=== PATIENT | female | born 2000 | race Caucasian/White ===

== ENCOUNTER 2023-10-01 11:20 | Emergency (ER) | payer OTHER, BC, SELFPAY ==
[2023-10-01 11:24] VITALS: BP 144/84
[2023-10-01 11:25] VITALS: O2SAT 98
[2023-10-01 11:26] VITALS: BP 144/84; PULSE 84; TEMP 36.8; O2SAT 98; BMI 30.4
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
[2023-10-01] MEDS: ONDANSETRON 4 MG RAPDIS TABLET SL ×2 (11:57→13:54)
[2023-10-01] MEDS: ADACEL DIPH,PERTUSS(ACELL),TET VAC/PF 0.5 ML ADULT SYRINGE IM (11:57)
[2023-10-01] MEDS: 0.9 % SODIUM CHLORIDE 1,000 ML 999 ML IV (11:58)
[2023-10-01 12:10] LABS: Basophils Percent Auto 0.4 % (0.2-2.0); Eosinophils Absolute Auto 0.1 10^3/uL (0.0-0.7); Eosinophils Percent Auto 0.8 % (0.9-7.0); Hematocrit 42.8 % (36.0-48.0); Hemoglobin 14.1 g/dL (12.0-16.0); Immature Granulocytes Abs Auto 0.04 10^3/uL (0.00-0.03); Immature Granulocytes Pct Auto 0.6 % (0.0-0.5); Lymphocytes Absolute Auto 1.4 10^3/uL (1.2-3.8); Mean Corpuscular HGB Conc 32.9 g/dL (29.9-35.2); Mean Corpuscular Volume 88.1 fL (81.0-99.0); Monocytes Absolute Auto 0.6 10^3/uL (0.3-0.8); Monocytes Percent Auto 8.5 % (1.7-12.0); Neutrophils Absolute Auto 4.9 10^3/uL (1.4-6.5); Neutrophils Percent Auto 69.7 % (43.0-75.0); Platelet Count 262 10^3/uL (150-450); Red Blood Count 4.86 10^6/uL (4.20-5.40); White Blood Count 7.1 10^3/uL (4.0-11.0)
[2023-10-01 12:37] LABS: HCG Qualitative NEGATIVE (NEGATIVE)
[2023-10-01 12:45] LABS: Alanine Aminotransferase 18 U/L (14-59); Albumin Globulin Ratio 1.3; Albumin Level 4.3 g/dL (3.4-5.0); Alkaline Phosphatase 68 U/L (46-116); Anion Gap 14.2; Aspartate Amino Transferase 16 U/L (15-37); BUN Creatinine Ratio 11.5; Bilirubin Total 0.5 mg/dL (0.2-1.0); Calcium 9.7 mg/dL (8.5-10.1); Carbon Dioxide 24.8 mmol/L (21.0-32.0); Chloride 104 mmol/L (98-107); Estimated GFR (African America >60 (>=60); Estimated GFR (Non-African Ame >60 (>=60); Globulin 3.3 g/dL; Glucose 104 mg/dL (74-106); Sodium 139 mmol/L (136-145); Total Protein 7.6 g/dL (6.4-8.2); Troponin I High Sensitivity <4.0 pg/mL (4.0-51.3)
[2023-10-01] MEDS: ACETAMINOPHEN 500 MG TABLET PO (12:56)
[2023-10-01 12:58] VITALS: O2SAT 98
[2023-10-01] MEDS: BACITRACIN 0.9 GM PACKET 1 PACKET TOPICAL (13:54)
[2023-10-01 13:58] VITALS: BP 138/76; O2SAT 99
[2023-10-01] MEDS: HYDROCODONE/ACET 5-325 MG TABLET 1 TAB PO (14:04)
--- NOTE | 2023-10-01 14:20 | XR_ITS ---
The [address] [address] Patient Name: MAJOR CABRALES MRN: [id number] date: 2000 Sex: F Assigned Patient Location: ER Current Patient Location: ER Accession/Order Number: [id number] Exam Date: 10/01/2023 14:15 Report Date: 10/01/2023 14:27 At the request of: JON PIRES Procedure: XR hand LT min 3V PROCEDURE: XR hand LT min 3V HISTORY: left thumb pain COMPARISON: None. FINDINGS: BONES:No fracture, acute abnormality, or significant arthropathy. SOFT TISSUES:No visible soft tissue swelling. EFFUSION:None visible. OTHER: Negative. XR/XR hand LT min 3V IMPRESSION: 1. No acute bone abnormality with specific attention to the thumb. Electronically authenticated by: MAYITO FROST Date: 10/01/2023 14:27
== END 2023-10-01 14:42 | disposition home or self-care (01) ==
PROVIDERS: Emergency Provider Emergency Medicine
DX: S40.012A Contusion of left shoulder, initial encounter (principal); S30.1XXA Contusion of abdominal wall, initial encounter; S09.90XA Unspecified injury of head, initial encounter; S40.021A Contusion of right upper arm, initial encounter; S60.419A Abrasion of unspecified finger, initial encounter; V44.5XXA Car driver injured in collision with heavy transport vehicle or bus in traffic accident, initial encounter; Z23 Encounter for immunization; Z79.899 Other long term (current) drug therapy
CPT/HCPCS: 36415; 70450; 71260; 72125; 73030; 73130; 74177; 80053; 84484; 84703; 85025; 90471; 90715; 99285; Q9967